=== PATIENT | female | born 1945 | race Caucasian/White ===

== ENCOUNTER 2016-06-01 06:27 | Day surgery (SDC) | payer MEDICARE, BC ==
--- NOTE | ~2016-06-01 | EGD ---
EGD REPORT [facility] [address] [address] NAME: JUAN POND : [birth year] STATUS : REG [facility] [place] PAT#: [id number] AGE: 70 ADM/REG DATE : 06/01/16 MR#: [id number] REPORT SERV DATE: 06/01/16 DICTATED BY: LUANNE THORNTON DATE: 06/01/16 REPORT STATUS : Draft [facility]ANS[facility]IBED BY: [facility] DATE: 06/01/16 Endoscopy Center Patient Name: Juan Pond Date of : 1945 Attending MD: LUANNE THORNTON MD Procedure Date No Time: 06/01/2016 Procedure: Colonoscopy Indications: Screening for colorectal malignant neoplasm Referring MD: RADHIKA STROUD Medicines: Monitored Anesthesia Care Complications: No immediate complications. Procedure: Pre-Anesthesia Assessment: - ASA Grade Assessment: II - A patient with mild systemic disease. After I obtained informed consent, the scope was passed under direct vision. Throughout the procedure, the patient's blood pressure, pulse, and oxygen saturations were monitored continuously. The PCF [id number] was introduced through the anus and advanced to the cecum, identified by appendiceal orifice and ileocecal valve. The colonoscopy was performed with moderate difficulty due to significant looping. Successful completion of the procedure was aided by applying abdominal pressure. The patient tolerated the procedure well. The quality of the bowel preparation was good. Findings: The digital rectal exam was normal. Pertinent negatives include no palpable rectal lesions. Multiple diverticula were found in the sigmoid colon. A sessile polyp was found in the rectum. The polyp was 4 mm in size. The polyp was removed with a cold biopsy forceps. Resection and retrieval were complete. Hemorrhoids were found during endoscopy and were moderate. A single small angioectasia without bleeding was found in the ascending colon. Multiple diverticula were found in the descending colon. Impression: - Diverticulosis in the sigmoid colon. - One 4 mm polyp in the rectum. Resected and retrieved. - Hemorrhoids. Recommendation: - Patient has a contact number available for emergencies. The signs and symptoms of potential delayed complications were discussed with the patient. Return to EGD REPORT [address] [address] NAME: JUAN POND : [birth year] STATUS : REG [facility] [place] PAT#: [id number] AGE: 70 ADM/REG DATE : 06/01/16 MR#: [id number] REPORT SERV DATE: 06/01/16 DICTATED BY: LUANNE THORNTON DATE: 06/01/16 REPORT STATUS : Draft TRANSCRIBED BY: [employer] DATE: 06/01/16 normal activities tomorrow. Written discharge instructions were provided to the patient. - Regular diet. - Continue present medications. - Repeat colonoscopy in 5-10 years for surveillance based on pathology results. - Return to GI clinic PRN. Procedure Code(s): --- Professional --- 58937, Colonoscopy, flexible, proximal to splenic flexure; with biopsy, single or multiple Diagnosis Code(s): --- Professional --- K64.9, Unspecified hemorrhoids K57.30, Diverticulosis of large intestine without perforation or abscess without bleeding K62.1, Rectal polyp Z12.11, Encounter for screening for malignant neoplasm of colon CPT copyright 2013 [employer]. All rights reserved. The codes documented in this report are preliminary and upon side door worker review may be revised to meet current compliance requirements. LUANNE THORNTON MD 06/01/2016 8:20 AM This report has been signed electronically. Number of Addenda: 0 Note Initiated On: 06/01/2016 7:50 AM Scope Withdrawal Time 0 hours 9 minutes 44 seconds [id number] [place] [address] [id number]
[~2016-06-01 06:27] MED LIST: BONIVA150 MG PO; BREO ELLIPTA INH; HYGROTON 25 MG25 MG PO; METHOC500B PO; MICRO-K10 MEQ PO; MIRALAX POWDER1 PKT PO; MULTIPLE VIT PO; PVC; SPIRO25 PO; VITAMIN D2000 UNIT PO; ZOCOR20 PO
== END 2016-06-01 23:59 | disposition home or self-care (01) ==
LOC: DMU 06:27
PROVIDERS: Internal Medicine Gastroenterology
PROC: 0DBP8ZX Excision of Rectum, Via Natural or Artificial Opening Endoscopic, Diagnostic (ICD-10-PCS; principal; 2016-06-01 08:00)
DX: Z12.11 Encounter for screening for malignant neoplasm of colon (principal); K62.1 Rectal polyp; K64.9 Unspecified hemorrhoids; K57.30 Diverticulosis of large intestine without perforation or abscess without bleeding; J45.909 Unspecified asthma, uncomplicated; I73.00 Raynaud's syndrome without gangrene; E78.00 Pure hypercholesterolemia, unspecified; M85.80 Other specified disorders of bone density and structure, unspecified site; I10 Essential (primary) hypertension; Z91.040 Latex allergy status; Z79.899 Other long term (current) drug therapy; Z90.710 Acquired absence of both cervix and uterus; Z98.890 Other specified postprocedural states
CPT/HCPCS: 88305